=== PATIENT | male | born 1950 | race Caucasian/White ===

== ENCOUNTER 2016-08-28 20:53 | Emergency (ER) | payer OTHER ==
[~2016-08-28] VITALS: Ht 167.6 cm; Wt 78.0 kg
--- NOTE | 2016-08-28 21:24 | ED GI/GU/ABDOMINAL COMPLAINT ---
See Addendum History of Present Illness General Chief Complaint: Abdominal Pain/Flank Pain Stated Complaint: SHARP PAIN URQ, X 1 DAY Source: patient, family, old records Exam Limitations: no limitations Vital Signs & Intake/Output Vital Signs & Intake/Output Vital Signs Date Time Temp Pulse Resp B/P B/P Pulse O2 O2 Flow FiO2 Mean Ox Delivery Rate 08/28 2141 82 16 155/83 98 Room Air 08/28 2100 96.8 91 16 98 Room Air Allergies Coded Allergies: NO KNOWN ALLERGIES (03/07/13) Triage Note: PT TO ED C/O RUQ AND EPIGASTRIC PAIN X1 DAY, WORSE WITH LYING FLAT/MOVEMENT. FELL OFF LADDER 2-3 FT A FEW DAYS AGO, BUT STATES PAIN IS DIFFERENT AND HAS BEEN PROGRESSIVELY WORSE. DENIES N/V/D/CHANGE IN APPETITE Triage Nurses Notes Reviewed? yes HPI: Patient is a 66-year-old male presents complaining of severe right mid and right upper abdominal pain onset yesterday. Pain is a sharp pain, currently severe, that is waxing and waning worsens with certain movements and palpation to the area. Patient has not taken any medication for symptoms. Patient was at rest yesterday when the pain began. Last bowel movement was this evening and normal. Patient last ate this morning with no change in his pain. Patient denies fevers, chills, nausea, vomiting. Patient fell 6 days ago onto his right ribs. Did not have any abdominal pain after the fall. (ALIZE ANDERSON) Reconcile Medications Dicyclomine Hydrochloride (Bentyl) 10 MG CAPSULE 1 CAP PO TID PRN pain Ondansetron (Zofran Odt) 4 MG TAB.RAPDIS 1 TAB SL TID PRN nausea Pantoprazole Sodium (Protonix) 40 MG TABLET.DR 1 TAB PO DAILY gerd (MIGUELINA BENÍTEZ,CELI) Past History Travel History Traveled to [place] past 21 day No Medical History Any Pertinent Medical History? see below for history Respiratory: HEMOPNEUMOTHORAX Pneumonia Vaccine: 02/06/09 Influenza Vaccine: 02/06/09 Tetanus Vaccine: 03/07/13 Surgical History Surgical History: RIB REMOVAL Psychosocial History What is your primary language Somali Tobacco Use: Never used ETOH Use: denies use Family History Hx Contributory? No (ALIZE ANDERSON) Review of Systems Review of Systems Constitutional: Denies: chills, fever. EENTM: Reports: no symptoms. Respiratory: Denies: cough, short of breath. Cardiovascular: Denies: chest pain. GI: Reports: see HPI. Genitourinary: Denies: dysuria, hematuria. Musculoskeletal: Denies: back pain. Skin: Reports: no symptoms. Neurological/Psychological: Reports: no symptoms. Hematologic/Endocrine: Reports: no symptoms. Immunologic/Allergic: Reports: no symptoms. (ALIZE ANDERSON) Physical Exam Physical Exam General Appearance: well developed/nourished, alert, awake Head: atraumatic, normal appearance Eyes: Bilateral: normal appearance, PERRL, EOMI. Ears, Nose, Throat, Mouth: hearing grossly normal, moist mucous membrane Neck: normal inspection, supple, full range of motion, no midline tenderness Respiratory: normal breath sounds, chest non-tender, no respiratory distress, lungs clear Cardiovascular: regular rate/rhythm Gastrointestinal: normal bowel sounds, soft, RIGHT MID AND RIGHT UPPER ABDOMINAL TENDERNESS. nO PALPABLE MASSES. nEGATIVE mCbURNEY'S POINT TENDERNESS. Back: normal inspection, normal range of motion, no vertebral tenderness Extremities: normal range of motion Neurologic/Psych: no motor/sensory deficits, awake, alert, oriented x 3, normal gait, normal mood/affect Skin: intact, normal color, warm/dry Core Measures ACS in differential dx? No Severe Sepsis Present: No Septic Shock Present: No (ALIZE ANDERSON) Progress Differential Diagnosis: biliary colic, colon cancer, cholecystitis, diverticulitis, gastritis, hepatitis, hernia, ischemic bowel, inflamm bowel dis, pancreatitis, SBO, ureterolithiasis, urinary retention, urethritis, UTI/pyelo Plan of Care: Orders Procedure Date/time Status LACTIC ACID 08/29 0019 Active URINALYSIS 08/28 2118 Complete LIPASE 08/28 2118 Complete LACTIC ACID 08/28 2118 Complete COMPREHENSIVE METABOLIC PANEL 08/28 2118 Complete CBC WITHOUT DIFFERENTIAL 08/28 2118 Complete AMYLASE 08/28 2118 Complete EKG 08/29 2055 Active Laboratory Tests 08/28/16 2220: Urinalysis LIGHT H, Urine Color YEL, Urine Clarity CLEAR, Urine pH 7.0, Ur Specific [place] 1.015, Urine Protein NEG, Urine Ketones 15 H, Urine Nitrite NEG, Urine Bilirubin NEG, Urine Urobilinogen 0.2, Ur Leukocyte Esterase NEG, Ur Microscopic SEDIMENT EXAMINED, Urine RBC 1-3, Ur Epithelial Cells RARE, Urine Mucus RARE, Urine Hemoglobin TRACE-INTACT H, Urine Glucose NEG 08/28/162129: Anion Gap 8, Estimated GFR > 60, BUN/Creatinine Ratio 13.8, Glucose 94, Lactic Acid 1.2, Calcium 9.2, Total Bilirubin 1.2, AST 18, ALT 39, Alkaline Phosphatase 87, Total Protein 6.7, Albumin 4.0, Globulin 2.7, Albumin/Globulin Ratio 1.5, Amylase < 30 L, Lipase 16 L, CBC w Diff NO MAN DIFF REQ, RBC 4.82, MCV 83.8, MCH 28.4, RDW 13.4, MPV 6.9 L, Gran % 75.9 H, Lymphocytes % 15.7 L, Monocytes % 6.4, Eosinophils % 1.3, Basophils % 0.7, Absolute Granulocytes 7.6 H, Absolute Lymphocytes 1.6, Absolute Monocytes 0.6, Absolute Eosinophils 0.1, Absolute Basophils 0.1, PUBS MCHC 33.9 2214: Discussed with Dr. Chiu. (ALIZE ANDERSON) 2324 I discussed with the patient at length all of their results ct dinfinds and incendtal findings. I had an extensive conversation regarding need for close follow up with their primary care physician as well as his gi dr quintero this week as well as return precautions. I answered all of their questions, they feel comfortable with the plan and follow-up care. I discussed the medications that they will receive with the patient. I gave them signs and symptoms that could indicate an adverse reaction. I have advised them to limit their activities until they can see how they respond to the medication. (KUNAL FRANCOIS) Initial ED EKG: normal axis, normal intervals, normal p-waves, normal QRS complex, normal sinus rhythm, no ST T wave changes Hand-Off Endorsed To: KUNAL FRANCOIS Endorsed Time: 2253 Pending: CT (ALIZE ANDERSON) Diagnostic Imaging: Viewed by Me: CT Scan. Discussed w/RAD: CT Scan. Radiology Impression: PATIENT: LARISA HORVATH PRESENT AGE: 66 PATIENT ACCOUNT NO: [id number] : 49 LOCATION: [facility] ORDERING PHYSICIAN: ALIZE MARTIN SERVICE DATE: 08/28/16 EXAM TYPE: CAT - CT ABD & PELVIS W IV CONTRAST EXAMINATION: CT ABDOMEN AND PELVIS WITH CONTRAST CLINICAL INFORMATION: Severe right mid and right upper abdominal pain. COMPARISON: CT chest 01/18/2009. TECHNIQUE: Multidetector volumetric imaging was performed of the abdomen and pelvis before and after the IV administration of 94 mL of Optiray 320 intravenous contrast. Sagittal and coronal reformatted images were obtained on the technologist's workstation. DLP: 304 mGy-cm FINDINGS: LUNG BASES: Evaluation of the included lung bases demonstrates pleural thickening within the right lung base spanning up to 1.8 cm in AP diameter. This thickened pleura measures approximately 53 Hounsfield units. There are associated calcified pleural plaques within the right lung base. LIVER, GALLBLADDER, AND BILIARY TREE: The liver is normal in size, shape, and attenuation. There is a hypoattenuating lesion within the central liver measuring 1.5 x 1.8 cm. There is an additional smaller lesion within the left hepatic lobe measuring 0.6 cm. No biliary ductal dilatation is present. The gallbladder is unremarkable with no evidence of radiopaque gallstones, gallbladder wall thickening, or obvious pericholecystic inflammatory changes. PANCREAS: Unremarkable. SPLEEN: Unremarkable. ADRENAL GLANDS: Unremarkable. KIDNEYS AND URETERS: The kidneys are normal in size, shape, and attenuation. No hydronephrosis, hydroureter, or calculi seen. No perinephric stranding. BLADDER: Unremarkable. GASTROINTESTINAL TRACT: Normal anatomic orientation of the stomach relative to the duodenum. Normal caliber of abdominal and pelvic bowel loops, without evidence of obstruction or ileus. No circumferential bowel wall thickening with surrounding inflammatory changes to suggest an underlying infectious or inflammatory enterocolitis. Normal-appearing appendix within the right lower quadrant of the abdomen. No organizing intra-abdominal fluid collections or free intraperitoneal air. ABDOMINAL WALL: No significant hernia is appreciated. LYMPH NODES: No significant abdominal or pelvic adenopathy. VASCULAR: Patent abdominal vasculature. Normal course and caliber of the abdominal aorta and its branching vessels, without aneurysmal dilatation. PELVIC VISCERA: Unremarkable. OSSEOUS STRUCTURES: No acute osseous abnormality. Scoliosis of the imaged thoracolumbar spine. IMPRESSION: No acute findings within the abdomen or pelvis to explain patient symptomatology. Incidental note is made of focal pleural thickening within the right lung base with associated pleural calcifications. This finding is nonspecific but may represent sequela of a previously identified empyema within the right lung base. An acute process within the chest cannot be excluded. A dedicated chest CT may be obtained for further evaluation. DICTATED BY: OSCAR GARCIA MD DATE/TIME DICTATED:08/28/162243 INCOME TAX PREPARER:CAROLYN DATE/TIME TRANSCRIBED:08/28/162243 CONFIDENTIAL, DO NOT COPY WITHOUT APPROPRIATE AUTHORIZATION. <Electronically signed in Other Vendor System> SIGNED BY: OSCAR GARCIA MD 08/28/16 230 (KUNAL FRANCOIS) Departure Departure Disposition: STILL A PATIENT Condition: Stable Clinical Impression Primary Impression: Abdominal pain Qualifiers: Abdominal location: right upper quadrant Qualified Code: R10.11 - Right upper quadrant pain Referrals: CHITRA HERRERA MD (PCP/Family) Departure Forms: Customer Survey General Discharge Information (ALIZE ANDERSON) Departure Time of Disposition: 2304 Additional Instructions: FOLLOW UP WITH YOUR PMD ON TUESDAY. Bentyl for pain. zofran for nausea, protonix as discussed. bland diet, clear liquids advance as tolerated. return to the ER at anytime sooner with any concerns Prescriptions: Current Visit Scripts Pantoprazole Sodium (Protonix) 1 TAB PO DAILY #10 TAB Ondansetron (Zofran Odt) 1 TAB SL TID PRN nausea #10 TAB Dicyclomine Hydrochloride (Bentyl) 1 CAP PO TID PRN pain #12 CAP (KUNAL FRANCOIS) PA/SANITATION SUPERINTENDENT Co-Sign Statement Statement: ED Attending supervision documentation- x I saw and evaluated the patient. I have also reviewed all the pertinent lab results and diagnostic results. I agree with the findings and the plan of care as documented in the PA's/SANITATION SUPERINTENDENT's documentation. [] I have reviewed the ED Record and agree with the PA's/SANITATION SUPERINTENDENT's documentation. [] Additions or exceptions (if any) to the PAs/SANITATION SUPERINTENDENT's note and plan are summarized below: [] (MIGUELINA BENÍTEZ,CELI) ED Attending Observation Initial Observation Note: I have seen and personally examined LARISA HORVATH on 08/28/16 at 2326. I agree with the current emergency department documentation. The disposition (admission or discharge) is uncertain at this time, he needs a period of observation for the following reason(s): The ED Nurse caring for this patient has been personally informed as to what the patient is being observed for. (JENNY MARTIN,KUNAL)
[2016-08-28 21:34] LABS: ABSOLUTE BASOPHIL COUNT 0.1 /CUMM (0.0-0.2); ABSOLUTE EOSINOPHIL COUNT 0.1 /CUMM (0.0-0.7); ABSOLUTE GRANULOCYTE CT 7.6 /CUMM (1.4-6.5); ABSOLUTE LYMPH COUNT 1.6 /CUMM (1.2-3.4); ABSOLUTE MONOCYTE COUNT 0.6 /CUMM (0.10-0.60); BASOPHIL % 0.7 % (0.0-2.0); EOSINOPHIL % 1.3 % (0-5); GRANULOCYTE % 75.9 % (42.2-75.2); HEMATOCRIT 40.3 % (42-52); MEAN CORPUSCULAR HGB 28.4 PG (27.0-31.0); MEAN CORPUSCULAR HGB CONC 33.9 G/DL (33.0-37.0); MEAN CORPUSCULAR VOLUME 83.8 FL (80.0-94.0); MEAN PLATELET VOLUME 6.9 FL (7.4-10.4); PLATELET COUNT 341 /CUMM (130-400); RBC DISTRIBUTION WIDTH 13.4 % (11.5-14.5); RED BLOOD CELL CT 4.82 /CUMM (4.70-6.10)
--- NOTE | 2016-08-28 23:03 | CT SCAN REPORT ---
EXAMINATION: CT ABDOMEN AND PELVIS WITH CONTRAST CLINICAL INFORMATION: Severe right mid and right upper abdominal pain. COMPARISON: CT chest 01/18/2009. TECHNIQUE: Multidetector volumetric imaging was performed of the abdomen and pelvis before and after the IV administration of 94 mL of Optiray 320 intravenous contrast. Sagittal and coronal reformatted images were obtained on the technologist's workstation. DLP: 304 mGy-cm FINDINGS: LUNG BASES: Evaluation of the included lung bases demonstrates pleural thickening within the right lung base spanning up to 1.8 cm in AP diameter. This thickened pleura measures approximately 53 Hounsfield units. There are associated calcified pleural plaques within the right lung base. LIVER, GALLBLADDER, AND BILIARY TREE: The liver is normal in size, shape, and attenuation. There is a hypoattenuating lesion within the central liver measuring 1.5 x 1.8 cm. There is an additional smaller lesion within the left hepatic lobe measuring 0.6 cm. No biliary ductal dilatation is present. The gallbladder is unremarkable with no evidence of radiopaque gallstones, gallbladder wall thickening, or obvious pericholecystic inflammatory changes. PANCREAS: Unremarkable. SPLEEN: Unremarkable. ADRENAL GLANDS: Unremarkable. KIDNEYS AND URETERS: The kidneys are normal in size, shape, and attenuation. No hydronephrosis, hydroureter, or calculi seen. No perinephric stranding. BLADDER: Unremarkable. GASTROINTESTINAL TRACT: Normal anatomic orientation of the stomach relative to the duodenum. Normal caliber of abdominal and pelvic bowel loops, without evidence of obstruction or ileus. No circumferential bowel wall thickening with surrounding inflammatory changes to suggest an underlying infectious or inflammatory enterocolitis. Normal-appearing appendix within the right lower quadrant of the abdomen. No organizing intra-abdominal fluid collections or free intraperitoneal air. ABDOMINAL WALL: No significant hernia is appreciated. LYMPH NODES: No significant abdominal or pelvic adenopathy. VASCULAR: Patent abdominal vasculature. Normal course and caliber of the abdominal aorta and its branching vessels, without aneurysmal dilatation. PELVIC VISCERA: Unremarkable. OSSEOUS STRUCTURES: No acute osseous abnormality. Scoliosis of the imaged thoracolumbar spine. IMPRESSION: No acute findings within the abdomen or pelvis to explain patient symptomatology. Incidental note is made of focal pleural thickening within the right lung base with associated pleural calcifications. This finding is nonspecific but may represent sequela of a previously identified empyema within the right lung base. An acute process within the chest cannot be excluded. A dedicated chest CT may be obtained for further evaluation.
[2016-08-28] MEDS ORDERED: PROTONIX40 M3 PO (23:28)
[2016-08-28] MEDS ORDERED: ZOFRAN ODT4 M1 SL (23:28)
[2016-08-28] MEDS ORDERED: BENTYL10 M1 PO (23:28)
[2016-08-28 23:46] VITALS: BP 134/76
[2016-08-28] MEDS ORDERED: FLOMAX0.4 M1 (23:48)
== END 2016-08-28 23:54 ==
LOC: ERH 20:53
PROVIDERS: Physician Assistant
DX: R10.13 Epigastric pain (principal)
CPT/HCPCS: 74177; 81001; 93005; 93010; 96374; 96375; J2405